=== PATIENT | male | born 1945 | race African-American/Black ===

== ENCOUNTER → 2016-06-12 | Outpatient (CLI) | payer MEDICARE, OTHER ==
[2016-01-21 12:15] VITALS: BP 118/71
[~2016-06-12] MED LIST: ALBU8.5H3 INH; AMIO200T2 PO; APIX5TAB PO; ASPI81TA2 PO; ATOR20TA58 PO; BISA10SU55 RC; BUPR2TAB SL; CARV12.52 PO; CRESTOR10 MG PO; DOXA8TAB59 PO; FORM20VI IH; FURO40TA4 PO; FURO80TA3 PO; LISI-334 PO; LISI-338 PO; MAGN400O4 PO; MAGN400T22 PO; POTA10CA PO; POTA20TA12 PO; SOTA80TA PO; SPIR25TA PO; TIOT18CA IH; TORS20TA2 PO; TRAM50TA PO
--- NOTE | 2016-06-12 12:23 | RAD ---
Indication right shoulder pain for a month associated with a fall. 2 AP views and a Y-view of the right shoulder were obtained. No fracture or acute finding is seen. Shoulder prosthesis is noted. There is some mild deformity, perhaps posttraumatic, involving the right clavicle. There are mild degenerative changes at the AC joint. IMPRESSION: No acute finding
== END | disposition home or self-care (01) ==
LOC: DXRADRC 11:48
PROVIDERS: ATTEND General Practice
DX: M19.011 Primary osteoarthritis, right shoulder (principal); Z91.81 History of falling
CPT/HCPCS: 73030

== ENCOUNTER 2016-08-11 19:29 | Emergency (ER) | payer MEDICARE, OTHER ==
[~2016-08-11] VITALS: Ht 167.6 cm; Wt 73.6 kg
[~2016-08-11 19:29] MED LIST changes: -ALBU8.5H3 INH; +ALBU8.5H8 INH; -APIX5TAB PO; +APIX5TAB3 PO; +ASPI-630 PO; -ASPI81TA2 PO; -MAGN400O4 PO; +MAGN400O7 PO; -SOTA80TA PO; +SOTA80TA48 PO
[2016-08-11 19:46] VITALS: BP 125/58
[2016-08-11] MEDS ORDERED: TIZA4TAB PO (20:13)
[2016-08-11] MEDS ORDERED: HYDR-971 PO (20:13)
--- NOTE | 2016-08-11 20:13 | PHYS DOC ---
Past History Past Medical History: A-Fib, CAD, CHF, COPD, CVA, High Cholesterol, Heart Disease, Hypertension, Renal Disease, Renal Failure, Stroke, Other Past Surgical History: Pacemaker, Other Alcohol Use: None Drug Use: None Adult General Chief Complaint Chief Complaint: MUSCLE SPASM/CRAMP HPI HPI Patient is a 70-year-old gentleman with recent diagnosis of torticollis who presents here today complaining of pain to his neck. Patient reports he was seen here couple weeks ago and prescribed tizanidine as well as hydrocodone however he ran out of his medications before he was able see his primary care physician. Patient reports he has an appointment with his primary care physician in one week which he promises he will go see. Patient has any fevers shakes chills nausea vomiting diarrhea chest pain shortness of breath cough cold or runny nose. Patient denies any other new symptomatology other than pain to his left and right side of his neck. Patient reports that the pain had improved with the medication however he woke up today and the pain was back and worse. Patient is requesting that we assist him with refill the medications until he is able see his family doctor. Patient denies any weakness his upper or lower semis. She has physical exam is significant for tenderness to palpation to his right and left lateral neck. Patient has decreased range of motion secondary to pain. Patient's upper and lower extremities are 5 out of 5 strength. Sensations are intact. Patient does not present with any signs or symptoms of neurological deficit. Assessment and plan 70-year-old gentleman with torticollis presents for medication refill until he can see his primary care physician. We will go ahead and prescribed tizanidine and hydrocodone for the patient to assist him until he is able to be seen Review of Systems Review of Systems Constitutional: Denies fever or chills [] Eyes: Denies change in visual acuity, redness, or eye pain [] All other review systems are negative except as documented in the history of present illness portion. Allergies Allergies Allergies Coded Allergies Type Severity Reaction Last Updated Verified I S O L A T I O N *CONTACT* Allergy Unknown 10/31/15 Yes NKMA Allergy Unknown 10/31/15 Yes Physical Exam Physical Exam Constitutional: Well developed, well nourished, no acute distress, non-toxic appearance. [] HENT: Normocephalic, atraumatic, bilateral external ears normal, oropharynx moist, no oral exudates, nose normal. [] Eyes: PERRLA, EOMI, conjunctiva normal, no discharge. [] Neck: See above Lungs & Thorax: Bilateral breath sounds clear to auscultation [] Abdomen: Bowel sounds normal, soft, no tenderness, no masses, no pulsatile masses. [] Skin: Warm, dry, no erythema, no rash. [] Back: No tenderness, no CVA tenderness. [] Extremities: No tenderness, no cyanosis, no clubbing, ROM intact, no edema. [] Neurologic: Alert and oriented X 3, normal motor function, normal sensory function, no focal deficits noted. [] Psychologic: Affect normal, judgement normal, mood normal. [] Current Patient Data Vital Signs Vital Signs Date Time Temp Pulse Resp B/P (MAP) Pulse Ox O2 Delivery O2 Flow Rate FiO2 08/11/16 19:46 97.7 60 20 97 Room Air EKG EKG [] Radiology/Procedures Radiology/Procedures [] Course & Med Decision Making Course & Med Decision Making Pertinent Labs and Imaging studies reviewed. (See chart for details) [] Dragon Disclaimer Dragon Disclaimer This chart was dictated in whole or in part using Voice Recognition software in a busy, high-work load, and often noisy Emergency Department environment. It may contain unintended and wholly unrecognized errors or omissions. Departure Departure: Impression: Primary Impression: Torticollis, acute Disposition: 01 HOME, SELF-CARE Condition: IMPROVED Referrals: [facility] [facility] DO (PCP) Patient Instructions: Torticollis, Acute Scripts Hydrocodone Bit/Acetaminophen (NORCO 5-325 TABLET) 1 Each Tablet 1 TAB PO PRN Q6HRS Y for PAIN, #20 TAB 0 Refills Prov: BEBE VELÁZQUEZ MD 08/11/16 Tizanidine Hcl (TIZANIDINE HCL) 4 Mg Tablet 4 MG PO BID for 7 Days, #14 TAB Prov: BEBE VELÁZQUEZ MD 08/11/16 BEBE VELÁZQUEZ MD Aug 11, 2016 20:13
[2016-08-11] MEDS ORDERED: CYCLOBENZAPRINE 10 MG TABLET. PO ONE (20:30)
[2016-08-11] MEDS ORDERED: HYDROcodone/APAP 5/325MG 1 TAB TABLET PO ONE (20:30)
== END 2016-08-11 20:40 | disposition home or self-care (01) ==
LOC: ER 19:29
DX: M43.6 Torticollis (principal); I48.91 Unspecified atrial fibrillation; I25.10 Atherosclerotic heart disease of native coronary artery without angina pectoris; I13.0 Hypertensive heart and chronic kidney disease with heart failure and stage 1 through stage 4 chronic kidney disease, or unspecified chronic kidney disease; N18.9 Chronic kidney disease, unspecified; I50.9 Heart failure, unspecified; J44.9 Chronic obstructive pulmonary disease, unspecified; E78.00 Pure hypercholesterolemia, unspecified; Z86.73 Personal history of transient ischemic attack (TIA), and cerebral infarction without residual deficits; Z95.0 Presence of cardiac pacemaker; Z91.041 Radiographic dye allergy status
CPT/HCPCS: 99283

== ENCOUNTER 2016-09-18 18:57 | Emergency (ER) | payer MEDICARE, OTHER ==
[~2016-09-18] VITALS: Ht 167.6 cm; Wt 73.6 kg
[~2016-09-18 18:57] MED LIST changes: +HYDR-971 PO; +TIZA4TAB PO
[2016-09-18 20:28] LABS: BASO # 0.1 x10^3/uL (0.0-0.2); BASO % 2 % (0-3); EOS # 0.2 x10^3/uL (0.0-0.7); EOS % 4 % (0-3); HEMATOCRIT 26.5 % (39.0-53.0); HEMOGLOBIN 8.9 g/dL (13.0-17.5); LYMPH # 0.7 x10^3/uL (1.0-4.8); LYMPH % 14 % (24-48); MEAN CORPUSCULAR HEMOGLOBIN 29 pg (25-35); MEAN CORPUSCULAR HGB CONC 34 g/dL (31-37); MEAN CORPUSCULAR VOLUME 86 fL (79-100); MONO # 0.4 x10^3/uL (0.0-1.1); MONO % 8 % (0-9); NEUT # 3.9 x10^3uL (1.8-7.7); NEUT % 73 % (31-73); PLATELET COUNT 169 x10^3/uL (140-400); RED BLOOD COUNT 3.09 x10^6/uL (4.30-5.70); WHITE BLOOD COUNT 5.3 x10^3/uL (4.0-11.0)
[2016-09-18 20:36] LABS: ALBUMIN 3.1 g/dL (3.4-5.0); ALBUMIN/GLOBULIN RATIO 0.6 (1.0-1.7); CALCIUM 8.9 mg/dL (8.5-10.1); CREATININE 11.6 mg/dL (0.7-1.3); GFR 5.2; TOTAL BILIRUBIN 0.3 mg/dL (0.2-1.0); TOTAL PROTEIN 8.6 g/dL (6.4-8.2)
[2016-09-18] MEDS ORDERED: IV NORMAL SALINE 1,000ML 1,000 ML IV ONE (21:00)
[2016-09-18] MEDS ORDERED: SODIUM POLYSTYRENE SULFONATE 15 GM/60 ML ORAL.SUSP. PO ONE (21:00)
[2016-09-18] MEDS ORDERED: CALCIUM GLUCONATE 1,000 MG/10 ML VIAL IV ONE (21:00)
[2016-09-18] MEDS ORDERED: INSULIN REGULAR 100 UNIT/ML 10ML VIAL. IV ONE (21:00)
[2016-09-18] MEDS ORDERED: SODIUM BICARBONATE IVF 150 MEQ in IV STERILE WATER 1,000 ML IV ONE (21:45)
[2016-09-18 22:06] LABS: BACTERIA,URINE MANY /HPF (0-FEW); BILIRUBIN,URINE NEG (NEG); CLARITY,URINE CLOUDY; COLOR,URINE YELLOW; GLUCOSE,URINE NEG (NEG); NITRITE,URINE POS (NEG); RBC,URINE 0 /HPF (0-2); SQUAMOUS EPITHELIAL CELL,UR FEW /LPF; UROBILINOGEN,URINE 0.2 mg/dL (0.2 mg/dL); WBC,URINE 20-40 /HPF (0-4)
[2016-09-18] MEDS ORDERED: DEXTROSE 25% 10 ML DISP.SYRIN. IV ONE (22:15)
[2016-09-18 23:00] VITALS: BP 112/69
--- NOTE | 2016-09-18 23:00 | ED.ADGEN ---
Past History Past Medical History: A-Fib, CAD, CHF, COPD, CVA, High Cholesterol, Heart Disease, Hypertension, Renal Disease, Renal Failure, Stroke, Other Past Surgical History: Pacemaker, Other Alcohol Use: None Drug Use: None Adult General Chief Complaint Chief Complaint Generalized weakness, abdominal pain HPI HPI Patient is a 68-year-old -[place] male with history of CVA, A. fib, CAD , COPD, and hypertension who presents with generalized weakness and inability to get out of bed for the past 3 days. Patient reports decreased muscle strength. He denies fever, cough, sore throat, urinary frequency and urgency. Patient reports generalized abdominal pain and cramping with constipation. Patient has not had a bowel movement in the past 5 days. Denies diarrhea, bloody stools dark tarry stools. No other acute symptoms or complaints. Additional history obtained from the patient's spouse. Review of Systems Review of Systems ROS as per HPI. Current Medications Current Medications Current Medications Medications (Trade) Dose Ordered Sig/Katey Start Time Stop Time Status Last Admin Dose Admin Calcium Gluconate 1,000 mg 1X ONCE 09/18/16 21:00 09/18/16 21:01 DC 09/18/16 21:00 1,000 MG Dextrose 10 ml 1X ONCE 09/18/16 22:15 09/18/16 22:16 DC 09/18/16 22:15 10 ML Insulin Human Regular (NovoLIN R) 10 unit 1X ONCE 09/18/16 21:00 09/18/16 21:01 DC 09/18/16 21:00 10 UNIT Sodium Bicarbonate 150 meq/Sterile Water 1,150 ml @ 125 mls/hr 1X ONCE 09/18/16 21:45 09/19/16 06:56 09/18/16 21:45 125 MLS/HR Sodium Polystyrene Sulfonate (Kayexalate) 30 gm 1X ONCE 09/18/16 21:00 09/18/16 21:01 DC 09/18/16 21:00 30 GM Sodium Chloride 1,000 ml @ 1,000 mls/hr 1X ONCE 09/18/16 21:00 09/18/16 21:59 DC 09/18/16 22:00 1,000 MLS/HR Allergies Allergies Allergies Coded Allergies Type Severity Reaction Last Updated Verified I S O L A T I O N *CONTACT* Allergy Unknown 10/31/15 Yes NKMA Allergy Unknown 10/31/15 Yes Physical Exam Physical Exam Constitutional: Well developed, well nourished, no acute distress, non-toxic appearance. HENT: Normocephalic, atraumatic, bilateral external ears normal, oropharynx moist, Eyes: PERRLA, EOMI. Neck: Normal range of motion. Cardiovascular:Heart rate regular rhythm, no murmur. Lungs & Thorax: Bilateral breath sounds clear to auscultation. Abdomen: Bowel sounds normal, soft, mild distention, increased bowel sounds, no rebound rigidity or guarding. Skin: Warm, dry. Back: No tenderness. Extremities: No tenderness Neurologic: Alert and oriented X 3, R sided hemiparesis. Psychologic: Affect normal, judgement normal, mood normal. Current Patient Data Vital Signs Vital Signs Date Time Temp Pulse Resp B/P (MAP) Pulse Ox O2 Delivery O2 Flow Rate FiO2 09/18/16 19:05 98.6 60 17 98 Room Air Lab Results Laboratory Tests Test 09/18/16 20:05 09/18/16 21:33 White Blood Count 5.3 x10^3/uL (4.0-11.0) Red Blood Count 3.09 x10^6/uL (4.30-5.70) L Hemoglobin 8.9 g/dL (13.0-17.5) L Hematocrit 26.5 % (39.0-53.0) L Mean Corpuscular Volume 86 fL (79-100) Mean Corpuscular Hemoglobin 29 pg (25-35) Mean Corpuscular Hemoglobin Concent 34 g/dL (31-37) Red Cell Distribution Width 15.0 % (11.5-14.5) H Platelet Count 169 x10^3/uL (140-400) Neutrophils (%) (Auto) 73 % (31-73) Lymphocytes (%) (Auto) 14 % (24-48) L Monocytes (%) (Auto) 8 % (0-9) Eosinophils (%) (Auto) 4 % (0-3) H Basophils (%) (Auto) 2 % (0-3) Neutrophils # (Auto) 3.9 x10^3uL (1.8-7.7) Lymphocytes # (Auto) 0.7 x10^3/uL (1.0-4.8) L Monocytes # (Auto) 0.4 x10^3/uL (0.0-1.1) Eosinophils # (Auto) 0.2 x10^3/uL (0.0-0.7) Basophils # (Auto) 0.1 x10^3/uL (0.0-0.2) Sodium Level 135 mmol/L (136-145) L Potassium Level 7.0 mmol/L (3.5-5.1) *H Chloride Level 100 mmol/L (98-107) Carbon Dioxide Level 23 mmol/L (21-32) Anion Gap 12 (6-14) Blood Urea Nitrogen 197 mg/dL (8-26) H Creatinine 11.6 mg/dL (0.7-1.3) H Estimated GFR (Cockcroft-Gault) 5.2 BUN/Creatinine Ratio 17 (6-20) Glucose Level 112 mg/dL (70-99) H Calcium Level 8.9 mg/dL (8.5-10.1) Total Bilirubin 0.3 mg/dL (0.2-1.0) Aspartate Amino Transferase (AST) 13 U/L (15-37) L Alanine Aminotransferase (ALT) 16 U/L (16-63) Alkaline Phosphatase 82 U/L (46-116) Troponin I Quantitative 0.104 ng/mL (0-0.055) H Total Protein 8.6 g/dL (6.4-8.2) H Albumin 3.1 g/dL (3.4-5.0) L Albumin/Globulin Ratio 0.6 (1.0-1.7) L Urine Collection Type Unknown Urine Color Yellow Urine Clarity Cloudy Urine pH 5.0 Urine Specific [place] 1.010 Urine Protein Neg (NEG-TRACE) Urine Glucose (UA) Neg mg/dL (NEG) Urine Ketones (Stick) Neg mg/dL (NEG) Urine Blood Mod (NEG) Urine Nitrite Pos (NEG) Urine Bilirubin Neg (NEG) Urine Urobilinogen Dipstick 0.2 mg/dL (0.2 mg/dL) Urine Leukocyte Esterase Small (NEG) Urine RBC 0 /HPF (0-2) Urine WBC 20-40 /HPF (0-4) Urine Squamous Epithelial Cells Few /LPF Urine Bacteria Many /HPF (0-FEW) EKG EKG [EKG: Paced rhythm, wide QRS complex,] Radiology/Procedures Radiology/Procedures [Abdominal series: Pending CT abdomen/Pelvis: Pending] Course & Med Decision Making Course & Med Decision Making Pertinent Labs and Imaging studies reviewed. (See chart for details) [Acute Renal failure with hyperkalemia. Potassium 7.0. Patient vital signs are stable, EKG has paced rhythm with wide QRS complex. Rodriguez catheter placed. IV calcium, dextrose and insulin, bicarbonate and Kayexalate given. Dr. Escobar accepts to [facility] ICU. Dr. Adam firmware software verification engineer for nephrology consulted. ] Final Impression Final Impression [1. Acute renal failure 2. Hyperkalemia 3. Generalized weakness] Problems: Dragon Disclaimer Dragon Disclaimer This electronic medical record was generated, in whole or in part, using a voice recognition dictation system. PHUONG BERGERON DO Sep 18, 2016 23:00
[2016-09-18] MEDS ORDERED: levoFLOXacin 500 MG TABLET PO ONE (23:15)
--- NOTE | 2016-09-18 23:18 | RAD ---
EXAM: CT ABDOMEN/PELVIS WITHOUT CONTRAST. HISTORY: Abdominal pain, weakness, renal failure, hyperkalemia. TECHNIQUE: Computed tomography of the abdomen and pelvis was performed without intravenous contrast. COMPARISON: None. FINDINGS: Lung windows through the visualized portions of the bases reveal left ventricular hypertrophy and dilatation. Pacemaker leads are partially visualized. Bone windows reveal no suspicious lesions. The liver, gallbladder, pancreas, adrenal glands and spleen are unremarkable without contrast. The kidneys are unremarkable without contrast. There is no hydronephrosis. The bladder is decompressed by a Rodriguez catheter. There are no pathologically enlarged lymph nodes. The appendix is not inflamed. There is no obstruction. IMPRESSION: 1. No cause for acute pain is identified. 2. No hydronephrosis. 3. Left ventricular hypertrophy and dilatation. *One or more of the following individualized dose reduction techniques were utilized for this examination: 1. Automated exposure control. 2. Adjustment of the mA and/or kV according to patient size. 3. Use of iterative reconstruction technique. Electronically signed by: Porsha Plascencia MD (09/18/2016 11:15 PM) [facility]
--- NOTE | 2016-09-18 23:18 | EKG ---
[address] [address] Test Date: 2016-09-18 Test Time: 19:20:13 Pat Name: ABDULKADIR SIU Department: Room: Gender: M Peace Officer: : 1945 Requested By: PHUONG BERGERON Order Number: [id number] Reading MD: Beau Guillory Measurements Intervals [place] Rate: 60 P: 123 TN: 184 QRS: -102 QRSD: 20 T: 96 QT: 550 QTc: 556 Interpretive Statements SR VPACED Electronically Signed On 09-19-2016 8:36:22 CDT by Beau Guillory
--- NOTE | 2016-09-19 10:10 | RAD ---
Acute abdomen series with chest, 09/18/2016: History: Weakness constipation Gas is present in large and small bowel in a nonspecific pattern. No free air is seen in the abdomen. There is no evidence of organomegaly. Scattered vascular calcifications are present. Moderate multilevel degenerative changes are evident in the spine. A left-sided transvenous pacemaker remains in place. The left ventricle is mildly prominent. The pulmonary vascularity is normal. No pulmonary infiltrates are seen. There is no evidence of pleural fluid. IMPRESSION: No acute abdominal abnormality is detected.
== END 2016-09-18 23:30 | disposition short-term general hospital (02) ==
LOC: ER 18:57
DX: N17.9 Acute kidney failure, unspecified (principal); E87.5 Hyperkalemia; E78.00 Pure hypercholesterolemia, unspecified; I13.10 Hypertensive heart and chronic kidney disease without heart failure, with stage 1 through stage 4 chronic kidney disease, or unspecified chronic kidney disease; N18.9 Chronic kidney disease, unspecified; I25.10 Atherosclerotic heart disease of native coronary artery without angina pectoris; I48.91 Unspecified atrial fibrillation; J44.9 Chronic obstructive pulmonary disease, unspecified; Z95.0 Presence of cardiac pacemaker; Z86.73 Personal history of transient ischemic attack (TIA), and cerebral infarction without residual deficits; Z91.041 Radiographic dye allergy status
CPT/HCPCS: 36415; 51702; 74022; 74176; 80053; 81001; 84484; 85027; 87086; 87186; 93005; 96365; 96375; 99285; J0610; J1815; J7060; J7030